=== PATIENT | male | born 1995 | race American Indian/Alaskan Native ===

== ENCOUNTER 2018-12-26 16:38 | Emergency (ER) | payer SELFPAY ==
[2018-12-26 17:29] VITALS: BP 132/76
--- NOTE | 2018-12-26 17:31 | Emergency Department Report ---
ED Rash HPI - HPI Chief Complaint: Skin Rash Stated Complaint: GENTIALS RASH Time Seen by Provider: 12/26/18 17:27 Duration: 3 Days Location: Other (bilateral inner thighs ) Suspected Cause: Unknown Rash Symptoms: Yes Itching, No Facial Swelling, No Tongue/Oral Swelling, No Breathing Difficulties, No Choking Sensation, No Wheezing/Dyspnea, No Peeling, No Blistering, No Fever, No Lightheaded, No Malaise, No Myalgias Severity: mild Other History: This is a 23-year-old male nontoxic well in appearance with no signs of distress presents to the ED with complaint of rash and itching to inner thighs. Stated has a lot of sweating there. Patient denies any swelling, pus, or drainage. Patient denies any other symptoms. Denies any fever, chills, headache, nausea, vomiting, chest pain or SOB. Denies any other complaints. ED Review of Systems ROS: Stated complaint: GENTIALS RASH Other details as noted in HPI Constitutional: denies: chills, fever Eyes: denies: eye pain, eye discharge, vision change ENT: denies: ear pain, throat pain Respiratory: denies: cough, shortness of breath, wheezing Cardiovascular: denies: chest pain, palpitations Endocrine: no symptoms reported Gastrointestinal: denies: abdominal pain, nausea, diarrhea Genitourinary: denies: urgency, dysuria Musculoskeletal: denies: back pain, joint swelling, arthralgia Skin: rash. denies: lesions Neurological: denies: headache, weakness, paresthesias Psychiatric: denies: anxiety, depression Hematological/Lymphatic: denies: easy bleeding, easy bruising ED Past Medical Hx - Past Medical History Previous Medical History?: No - Surgical History Past Surgical History?: No - Medications Home Medications: Home Medications Medication Instructions Recorded Confirmed Last Taken Type Clotrimazole 1% [Lotrimin 1%] 1 applic TP BID 7 Days #1 tube 12/26/18 Unknown Rx Rash Exam - Exam General: Vital signs noted. No distress. Alert and acting appropriately. HEENT: No Periorbital Edema, No Conjuctival Injection, No Chemosis, No Perioral Edema, No Tongue Edema, No Uvular Edema, No Compromised Airway, No Drooling Lungs: Yes Good Air Exchange (Normal Breath Sounds), No Wheezes, No Ronchi, No Stridor, No Cough, No Labored Respirations, No Retractions, No Use of Accessory Muscles, No Other Abnormal Lung Sounds Heart: Yes Regular, No Murmur Skin: Yes Other (scaly redness with itching to crural fold and medial aspect of the right thigh), No Urticarial Rash, No Maculopapular Rash, No Morbilliform rash, No Bulla(e), No Excoriations, No Weeping, No Tenderness, No Erythema, No Edema, No Encrustations Other: Positive: Abdomen Normal, Neurologic Normal, Musculoskeletal Normal ED Course - Reevaluation(s) Reevaluation #1: 12/26/18 17:29 Patient is speaking in full sentences with no signs of distress noted. ED Medical Decision Making - Medical Decision Making 23-year-old male that presents with Tinea cruris. Patient is stable and was examined by me. Patient will be treated with Clotrimazole. Patient was instructed to Follow-up with a primary care doctor in 3-5 days or if symptoms worsen and continue return to emergency room as soon as possible. At time of discharge, the patient does not seem toxic or ill in appearance. No acute signs of distress noted. Patient agrees to discharge treatment plan of care. No further questions noted by the patient. Critical care attestation.: If time is entered above; I have spent that time in minutes in the direct care of this critically ill patient, excluding procedure time. ED Disposition Clinical Impression: Tinea cruris Disposition: DC-01 TO HOME OR SELFCARE Is pt being admited?: No Does the pt Need Aspirin: No Condition: Stable Instructions: Jeison Carrion (ED) Additional Instructions: Follow-up with a primary care doctor in 3-5 days or if symptoms worsen and continue return to the emergency department as soon as possible. Prescriptions: Clotrimazole 1% [Lotrimin 1%] 1 applic TP BID 7 Days #1 tube Referrals: PRIMARY CAREMD [Referring] - 3-5 Days PHANI ROMERO MD [Staff Physician] - 3-5 Days [facility] [Outside] - 3-5 Days Forms: Work/School Release Form(ED)
== END 2018-12-26 17:33 | disposition home or self-care (01) ==
LOC: ED 16:38
DX: B35.6 Tinea cruris (principal)

== ENCOUNTER 2020-06-30 06:24 | Emergency (ER) | payer SELFPAY ==
[2020-06-30 06:52] VITALS: BP 121/72
--- NOTE | 2020-06-30 08:28 | Cat Scan Report ---
CT HEAD WITHOUT CONTRAST INDICATION / CLINICAL INFORMATION: MAIN. TECHNIQUE: All CT scans at this location are performed using CT dose reduction for ALARA by means of automated e xposure control. COMPARISON: None available. FINDINGS: No acute intracranial hemorrhage. Ventricles are normal in size without midline shift or mass effect. No extra-axial fluid collection is seen. Sinuses are clear. Corpus callosum appears normal. ADDITIONAL FINDINGS: None. IMPRESSION: 1. No acute intracranial abnormality. CT cervical spine wo con, CT head/brain wo con INDICATION / CLINICAL INFORMATION: MAIN. TECHNIQUE: Axial coronal and sagittal images All CT scans at this location are performed using CT dose reduction for ALARA by means of automated exposure control. Findings: Cervical spine alignment appears normal. Facets appear well aligned throughout. Occipital condyles ap pear normal no subluxation is seen. Facets are well aligned. Odontoid appears normal IMPRESSION: 1. No acute findings. Signer Name: Aniceto Alfonso MD Signed: 06/30/2020 8:24 AM Workstation Name: [id number]
[2020-06-30] MEDS ORDERED: IBUPROFEN 600 MG TAB PO ONE (10:28)
--- NOTE | 2020-06-30 10:32 | Emergency Department Report ---
HPI - General Chief Complaint: Multiple Trauma Time Seen by Provider: 06/30/20 10:20 - HPI HPI: This is a 25-year-old male who presents to the emergency department after he fell down about 10 steps last night. He says that he was not paying attention where he was going and his legs slipped out from underneath him. He then slid down the 10 steps before coming to arrest. He denies hitting his head or any loss of consciousness. Earlier, through triage, the patient had complained of a headache, neck pain, upper back pain. For me, at the time of my examination, the patient just complains of some generalized soreness. He did not take anything for his symptoms prior to presentation. He denies any past medical history. He denies any fever, vision change, slurred speech, shortness of breath, numbness or paresthesias, weakness. ED Past Medical Hx - Past Medical History Previous Medical History?: No - Surgical History Past Surgical History?: No - Social History Smoking Status: Never Smoker Substance Use Type: Marijuana - Medications Home Medications: Home Medications Medication Instructions Recorded Confirmed Last Taken Type Clotrimazole 1% [Lotrimin 1%] 1 applic TP BID 7 Days #1 tube 12/26/18 Unknown Rx Ibuprofen [Motrin 600 MG tab] 600 mg PO Q8H PRN #20 tablet 06/30/20 Unknown Rx ED Review of Systems ROS: Stated complaint: FELL DOWN STAIRS/NECK/CHEST PAIN Other details as noted in HPI Comment: All other systems reviewed and negative Constitutional: denies: chills, fever Eyes: denies: eye pain, vision change ENT: denies: ear pain, throat pain Respiratory: denies: shortness of breath Cardiovascular: denies: palpitations, edema Gastrointestinal: denies: abdominal pain, vomiting Genitourinary: denies: dysuria, discharge Musculoskeletal: myalgia. denies: joint swelling Skin: denies: rash, lesions Neurological: headache. denies: weakness, numbness, paresthesias Physical Exam - Physical Exam Vital Signs: Vital Signs 06/30/20 06:27 Temperature 98.9 F Pulse Rate 85 Respiratory 20 Rate Blood Pressure 121/72 O2 Sat by Pulse 98 Oximetry Physical Exam: GENERAL: The patient is well-developed well-nourished. HENT: Normocephalic. Atraumatic. Patient has moist mucous membranes. EYES: Extraocular motions are intact. No nystagmus. NECK: Supple. Trachea is midline. There is mild midline and bilateral paraspinal tenderness to palpation. CHEST/LUNGS: Clear to auscultation. There is no respiratory distress noted. HEART/CARDIOVASCULAR: Regular. There is no tachycardia. There is no murmur. ABDOMEN: Abdomen is soft, nontender. Patient has normal bowel sounds. There is no abdominal distention. SKIN: Skin is warm and dry. NEURO: The patient is awake, alert, and oriented. The patient is cooperative. The patient has no focal neurologic deficits. Normal speech. Cranial nerves II through XII grossly intact. MUSCULOSKELETAL: There is no tenderness or deformity. There is no limitation range of motion. Muscle strength 5 out of 5 for upper extremity and lower extremity bilaterally. BACK: No midline thoracic or lumbar tenderness to palpation. ED Course Vital Signs 06/30/20 06:27 Temperature 98.9 F Pulse Rate 85 Respiratory 20 Rate Blood Pressure 121/72 O2 Sat by Pulse 98 Oximetry ED Medical Decision Making - Radiology Data Radiology results: report reviewed CT HEAD WITHOUT CONTRAST INDICATION / CLINICAL INFORMATION: MAIN. TECHNIQUE: All CT scans at this location are performed using CT dose reduction for ALARA by means of automated exposure control. COMPARISON: None available. FINDINGS: No acute intracranial hemorrhage. Ventricles are normal in size without midline shift or mass effect. No extra-axial fluid collection is seen. Sinuses are clear. Corpus callosum appears normal. ADDITIONAL FINDINGS: None. IMPRESSION: 1. No acute intracranial abnormality. CT cervical spine wo con, CT head/brain wo con INDICATION / CLINICAL INFORMATION: MAIN. TECHNIQUE: Axial coronal and sagittal images All CT scans at this location are performed using CT dose reduction for ALARA by means of automated exposure control. Findings: Cervical spine alignment appears normal. Facets appear well aligned throughout. Occipital condyles appear normal no subluxation is seen. Facets are well aligned. Odontoid appears normal IMPRESSION: 1. No acute findings. - Medical Decision Making This patient presents to the emergency department after falling down about 10 stairs sometime last night. Patient had a CT scan of the head and cervical spine done through triage that did not show any fractures, subluxation, hemorrhage, large vessel occlusion, or any other acute processes. At the time of my examination the patient is essentially asymptomatic. He does not have any current back or chest pains. He is seen ambulatory in the emergency department and both appears and feels stable. He has full range of motion and full muscle strength to all extremities. For this reason I did not feel that any further imaging was necessary at this time. Vital signs have been reassuring. Patient will be discharged home to follow-up with primary care and will return to the emergency department with any worsening of his symptoms or with any acute distress. Critical Care Time: No Critical care attestation.: If time is entered above; I have spent that time in minutes in the direct care of this critically ill patient, excluding procedure time. ED Disposition Clinical Impression: Musculoskeletal pain Fall down stairs Qualifiers: Encounter type: initial encounter Qualified Code(s): W10.8XXA - Fall (on) (from) other stairs and steps, initial encounter Headache Qualifiers: Headache type: unspecified Headache chronicity pattern: unspecified pattern Intractability: not intractable Qualified Code(s): R51.9 - Headache, unspecified Disposition: TO HOME OR SELFCARE Is pt being admited?: No Condition: Stable Instructions: Contusion, Musculoskeletal Pain, Fall Prevention in the Home, Adult Additional Instructions: Please follow-up with a primary care physician in the next few days. Return to the emergency department with any worsening of your symptoms, new or concerning symptoms not addressed during this current emergency department vis it, or with any acute distress. Prescriptions: Ibuprofen [Motrin 600 MG tab] 600 mg PO Q8H PRN #20 tablet PRN Reason: Pain Referrals: RUSTY SNOW MD [Primary Care Provider] - 3-5 Days KYE CHAUDHRY MD [Staff Physician] - 3-5 Days [facility] [Provider Group] - 3-5 Days Time of Disposition: 10:32
== END 2020-06-30 10:40 | disposition home or self-care (01) ==
LOC: ED 06:24
DX: M79.18 Myalgia, other site (principal); R51.9 Headache, unspecified; F12.90 Cannabis use, unspecified, uncomplicated; Z79.899 Other long term (current) drug therapy; W10.8XXA Fall (on) (from) other stairs and steps, initial encounter; Y93.89 Activity, other specified; Y92.89 Other specified places as the place of occurrence of the external cause; Y99.8 Other external cause status
CPT/HCPCS: 70450; 72125